=== PATIENT | female | born 1965 | race Caucasian/White ===

== ENCOUNTER → 2017-01-27 | Day surgery (SDC) | payer OTHER ==
[~2017-01-27] VITALS: Ht 162.6 cm; Wt 97.5 kg
[~2017-01-27] MED LIST: ADVAIR 250-501 EACH; AMLODIPINE BESYL5 M1; BENICAR HCT 401 EACH; FERROUS SULFAT325 M3; MOTRIN800 MG PO
--- NOTE | 2017-01-27 09:41 | Operative Report ---
Operative/Inv Procedure Report Surgery Date: 01/27/17 Name of Procedure: endometrial ablation Pre-Operative Diagnosis: menorrhagia Post-Operative Diagnosis: same Estimated Blood Loss: scant Surgeon/Testing Specialist: SCOT LANGSTON,DMITRI Diaz Anesthesia: local monitored anesthesi Operative/Procedure Note Note: The patient was brought to the operating room placed in dorsal supine position a timeout was done with the patient awake. After the induction of anesthesia second timeout was done patient was placed in low stirrups examination under anesthesia was performed a speculum was placed in the vagina the anterior lip of the cervix was grasped with a single-tooth tenaculum. The endocervical canal was dilated and a hysteroscope was introduced noting normal findings photos were taken. This was followed by a sharp curettage OF the endometrial cavity which was sent to pathology for examination the uterus was sounded to 10 cm the cervix was measured to be 4.5 cm the NovaSure device was therefore set 5.5 cm the NovaSure device was seated the width of the endometrial canal was noted to be 4 cm after testing for integrity A1 minute treatment cycle was undertaken there were no complications single-tooth tenaculum was removed and the patient was moved to recovery in good condition sponge instrument and needle counts were correct 3 Discharge Disposition: Same Day Admissions
== END ==
LOC: STS 02:40
DX: N92.4 Excessive bleeding in the premenopausal period (principal); I10 Essential (primary) hypertension; D64.9 Anemia, unspecified; J45.909 Unspecified asthma, uncomplicated; E66.9 Obesity, unspecified
CPT/HCPCS: 81025; 88305; J2250